=== PATIENT | female | born 1940 | race Caucasian/White ===

== ENCOUNTER 2016-09-12 21:44 | Inpatient (IN) | payer MEDICARE ==
[~2016-09-12] VITALS: Ht 165.1 cm; Wt 76.8 kg
[~2016-09-12 21:44] MED LIST: ASPIRIN 81MG TA81 MG PO; BENADRYL 25MG C25 MG PO; CENTRUM SILVER1 TAB PO; CLINDAMYCIN150 MG PO; COUMADIN 5MG TAB5 MG PO; COUMADIN6 MG PO; COZAAR25 MG PO; ELIQUIS2.5 MG PO; FERROUS SULFAT325 M2 PO; GLUCOSAMINE PO; Glucosamine500 MG PO; INNOPRAN XL120 MG PO; LEVAQUIN250 MG PO; LEVOTHYROXINE0.1 MG PO; LORATADINE 10MG10 M1 PO; LORTAB 5/3251 TAB PO; LOSARTAN POTASS25 MG PO; METOLAZONE 2.52.5 MG PO; NEURONTIN 300M300 MG PO; PANTOPRAZOLE SO40 MG PO; PERCOCET 5/3251 EACH PO; PERI-COLACE 501 TAB PO; POTASSIUM CHLO10 ME3 PO; POTASSIUM CHLO20 ME2 PO; PROPRANOLOL HC120 MG PO; ROBITUSSIN DM S10 ML NG; SPIRONOLACTONE25 MG NG; TEMAZEPAM15 M1 PO; TYLENOL ES500 M1 PO; VITAMIN D31000 I1 PO; VITAMIN D31000 IU PO; WARFARIN SODIUM4 MG PO; ZANTAC 150150 MG PO; ZOFRAN4 MG PO; [UNRECOGNIZED DRUG - OTHER] PO
[2016-09-12 21:58] VITALS: BP 131/88
--- OUTSIDE RECORDS SUMMARY | 2016-09-12 22:05 | External Medical Summary Rpt ---
Demographics Preferred Language Hungarian Marital Status Unknown Jainism Affiliation Unknown Race Unknown Ethnic Group Unknown Author Author , LOVE ALEMAN Address Unknown Phone Immunization Unable to retrieve immunization data due to connection failure with Immunization Registry. Please try again later.
--- OUTSIDE RECORDS SUMMARY | 2016-09-12 22:05 | External Medical Summary Rpt ---
Demographics Preferred Language Persian Marital Status Unknown Pentecostalism Affiliation Unknown Race Unknown Ethnic Group Unknown Author Author , LOVE ALEMAN Address Unknown Phone Immunization Unable to retrieve immunization data due to connection failure with Immunization Registry. Please try again later.
--- OUTSIDE RECORDS SUMMARY | 2016-09-12 22:05 | External Medical Summary Rpt ---
Author Author , LOVE ALEMAN Address Unknown Phone [email or web address] Name Relationship Address Phone CLAIRE, Next Of Kin [address] [phone] [place] [address] Purpose Continuity of Care Document - 11-19-2012 through 2016 Allergies, Adverse Reactions, Alerts Type Drug Allergy Adverse Reaction to Substance Substance Reaction Severity PCN (penicillin) Unknown Unknown Penicillin Unknown Unknown Penicillin G Unknown Unknown Vital Signs 11-19-2012 12:45 Name Value Interpretat Reference Comment ion Range BP 70 mm[Hg] Diastolic BP Systolic 132 mm[Hg] Heart 75 /min Rate/Pulse O2% 98 % Respiratory 16 /min Rate Encounters Encounter Start End Date Code Location Performer Type Date Emergency BESSIE Medel MD (ER) 3 12:44 3 12:47 [facility].
--- OUTSIDE RECORDS SUMMARY | 2016-09-12 22:05 | External Medical Summary Rpt ---
Author Author [employer] Organization [employer] Address Unknown Phone Unavailable Purpose Continuity of Care Document - through 2016
--- OUTSIDE RECORDS SUMMARY | 2016-09-12 22:05 | External Medical Summary Rpt ---
Author Author , LOVE ALEMAN Address Unknown Phone [email or web address] Support Name Relationship Address Phone CLAIRE, Next Of Kin [address] [phone] [place] [address] Purpose Continuity of Care Document - 11-19-2012 [...] Medel MD (ER) 3 12:44 3 12:47 [facility].
--- NOTE | 2016-09-12 22:20 | Emergency Room Report ---
History of Present Illness Time Seen by [id number] Presenting Problem in Triage Pt arrived:Walked Presenting Problem:RECENT HERNIA REPAIR SURGERY WITH SUBSEQUENT TREATMENT WITH WOUND VAC FOR MRSA TODAY HAD SUDDEN RIGIDITY AND PAIN ABOVE THE WOUND AFTER EATING. HAS NAUSEA NO VOMITING, 2 NORMAL BM'S TODAY. 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 N Clinical Suspician of Infection? Y Mental Status: 1 - Regular (Normal Baseline) Sepsis Risk:Low Sepsis Risk Have you (or family members/close friends) recently traveled outside the [place]? N If Yes, where/when: Have you had exposure to infectious disease within the past month? N TB? Other? Specify: Comment The patient complains of supraumbilical midline abdominal pain with nausea. Symptoms began this morning with what she thought was heartburn, but now she feels it is related to previous hernia surgery that she had in January. She had an incarcerated incisional hernia which was repaired. Surgery was done by Dr. Hooks. She says that this afternoon she feels a hard knot in the supraumbilical area that had not been present after her surgery. No vomiting. 2 bowel movements today without diarrhea. No fever. ALLERGIES Coded Allergies: Penicillins (02/03/16) penicillin G (02/03/16) Home Medications Reported Medications Spironolactone (Spironolactone) 50 MG NG BID PROPRANOLOL HCL (Innopran XL) 120 MG PO DAILY Metolazone (Metolazone 2.5MG) 2.5 MG PO DAILY Gabapentin (Neurontin 300MG) 300 MG PO TID Ferrous Sulfate (Ferrous Sulfate 325MG) 325 MG PO DAILY ASPIRIN (Aspirin) 81 MG PO DAILY CHOLECALCIFEROL (VITAMIN D3) (Vitamin D3) 1,000 IUNITS PO BID MULTIVIT,THER IRON,CA,FA & MIN (Sm Therapeutic M Tablet) 1 TAB PO DAILY Nutriceutical (Glucosamine & Chondroitin Plus) 1 TAB PO BID Pantoprazole Sodium (Pantoprazole 40MG) 40 MG PO QHS Diphenhydramine Hcl (Benadryl 25MG CAP) 25 MG PO QHS Losartan Potassium (Losartan 25MG) 25 MG PO DAILY Acetaminophen (Tylenol Extra-Strength) 500 MG PO Q6HP PRN PAIN Apixaban (Eliquis) 2.5 MG PO BID LEVOTHYROXINE SOD (Synthroid) 0.1 MG PO DAILY ONDANSETRON HCL (Zofran 4MG Tab) 4 MG PO Q6HP PRN NAUSEA AND VOMITING POTASSIUM CHL (Potassium Chloride) 20 MEQ PO BID SENNOSIDES/DOCUSATE SODIUM (Geetha-Colace Tablet) 1 TAB PO BID History Medical History General CAD? No Angina: No SC: No Hypertension? Yes Hyperlipidemia? No CHF? Yes DVT? No PE? No COPD? No Asthma? No Anemia? No GERD? No Gastric ulcers? No GI Bleed? No Hernia? Yes Thyroid Problems? Yes Hypothyroidism? No CVA? No Seizures? No Diabetes? No Renal Insuffiency? No End Stage Renal Disease? No UTI? No Stones? No BPH? No GB Disease: No Nephritic Syndrome? No Asplenia? No Hepatitis? No Sickle Cell Disease? No Arthritis? Yes Migraines? No Cataracts? No Glaucoma? No MRSA? Yes HIV? No TB? No Anxiety? No Depression? 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 No Immunization Hx DT/Tetanus 1-4 Years Ago Flu 2015-FSN Pneumonia Received In Past Surgical Hx Previous Surgery?Y HYSTERECTOMY W. APPY T&A SKIN CA REMOVED ARM/LEG THYROIDECTOMY COLON SURGERY RIGHT HIP SURGERY Family History Family Hx Diabetes No CAD Yes Hypertension Yes Hyperlipidemia Yes Cancer Yes TB No Social History Smoking Hx Smoker: Never Smoker Tobacco: No Packs/day N/A Alcohol Alcohol: No Review of Systems All Other Systems Reviewed and Negative Constitutional denies fever Gastrointestinal abdominal pain, denies constipation, denies diarrhea, nausea, denies vomiting Physical Exam Vital Signs Vital Signs Date Time Temp Pulse Resp B/P Pulse O2 O2 Flow FiO2 Ox Delivery Rate 09/13 0057 97.8 89 16 127/79 93 09/13 0039 97.8 89 16 127/79 93 09/13 0006 89 16 134/72 93 09/12 2316 89 16 138/73 93 09/12 2236 85 16 139/85 97 09/12 2158 97.8 87 14 131/88 97 General Appearance normal appearance, WD/WN Eye Exam - bilateral eye normal exam, bilateral eye PERRL, bilateral eye EOMI Ear, Nose, Throat hearing grossly normal, normal ENT inspection Neck normal inspection, non-tender, supple, full range of motion Respiratory Status Yes: trachea midline, chest symmetrical, non tender chest. No: respiratory distress. Lung Sounds bilateral: normal breath sounds, lungs clear. Cardiovascular normal exam, regular rate/rhythm, no peripheral edema, no gallop, no JVD, no murmur, no rub, normal peripheral pulses Peripheral Pulses Pulses normal Yes Gastrointestinal soft, no organomegaly, hernia, supraumbilical midline incisional hernia palpable. Minimally tender. I was able to reduce it completely without difficulty., hyperactive bowel sounds Extremities non-tender, normal range of motion, normal inspection Neurologic alert, ophthalmic pathologist II-XII nml as tested, normal exam, oriented x 3 Mental status normal mood/affect Skin intact, normal color, warm/dry Medical Decision Making LABS/Meds/Orders Pt receiving controlled substance in ED? No Results/Orders Laboratory Tests 09/12/16 2223: Urine Color YELLOW, Urine Appearance SL CLOUDY, Urine pH 6.5, Ur Specific [place] 1.025, Urine Protein NEGATIVE, Urine Ketones 1+ H, Urine Blood NEGATIVE , Urine Nitrate NEGATIVE, Urine Bilirubin NEGATIVE, Urine Urobilinogen 0.2, Ur Leukocyte Esterase 1+ H, Urine WBC 20-50, Ur Squamous Epith Cells 10-20, Amorphous Sediment 1+, Urine Bacteria 1+, Urine Mucus 1+, Urine Glucose NEGATIVE 09/12/16 2210: Sodium 139, Potassium 3.6, Chloride 100, Carbon Dioxide 30, BUN 23 H, Creatinine 0.6, Estimated Creat Clear 89, Estimated GFR (MDRD) 97, Glucose 109 H, Calcium 10.2 H, Total Bilirubin 0.5, AST 22, ALT 20, Alkaline Phosphatase 81 , Total Protein 8.0, Albumin 4.1, Globulin 3.9 H, Albumin/Globulin Ratio 1.1, Amylase 63, Lipase 204, WBC 14.1 H, RBC 4.94, Hgb 15.1, Hct 46.1, MCV 93.3, RDW 12.3, Plt Count 336, MPV 7.0 L, Gran % 84.9 H, Gran # 12.0 H, Lymphocytes % 10.6, Monocytes % 3.3, Eosinophils % 0.8, Basophils % 0.3, Lymphocytes # 1.5, Monocytes # 0.5, Eosinophils # 0.1, Basophils # 0.0, PUBS MCHC 32.7, MCH 30.6 Current Medication Orders Sig/Tawana Start time Last Medication Dose Route Stop Time Status Admin Enoxaparin Sodium 40 MG DAILY 09/13 09 UNV SC Levofloxacin/Dextrose 100 ML DAILY 09/13 09 UNVr IV Nicotine 21 MG DAILYP PRN 09/13 0015 UNV TD Ondansetron HCl 4 MG Q6HP PRN 09/13 0015 UNV IV Sodium Chloride 1,000 ML .Q8H 09/13 0015 UNV 09/13 IV 0030 Sodium Chloride 10 ML PRN PRN 09/13 0015 UNV IV Ondansetron HCl 4 MG ONCE ONE 09/12 2245 DC 09/12 IV 09/12 224 2233 Ondansetron HCl 4 MG ONCE ONE 09/12 2230 CAN IV 09/12 2231 Ondansetron HCl 4 MG ONCE ONE 09/12 2230 CAN IV 09/12 2231 Sodium Chloride 10 ML PRN PRN 09/12 2230 AC 09/12 IV 09/13 2216 2224 Ondansetron HCl 0 .STK-MED ONE 09/12 222 DC .ROUTE Orders Procedure Date/time Status DIET-NOTHING BY MOUTH 09/13 B Active ADMIT PATIENT 09/13 UNK Active VITAL SIGNS 09/13 UNK Active IV SALINE LOCK 09/13 UNK Active RECORD I & O 09/13 UNK Active CODE STATUS 09/13 UNK Active PATIENT ACTIVITY ORDER 09/13 UNK Active Decision to admit 09/[address] ABD & PELVIS W/O CONTRAST 09/12 2224 Active CULTURE, URINE 09/[address] ABD/PELVIS REQ 09/12 2216 Active IV SALINE LOCK 09/12 2216 Active URINALYSIS/COMPLETE 09/12 2216 Complete LIPASE 09/12 2216 Complete CBC WITH AUTO DIFF 09/12 2216 Complete CHEM 12 PROFILE 09/12 2216 Complete AMYLASE 09/12 2216 Complete XRAY/CT/US XRAY/CT/US CT abdomen, pelvis Comment CT scan interpreted by [facility] radiologist. Faxed report received and reviewed: Evidence of partial or early small bowel obstruction with transition point at periumbilical anterior abdomen, suspect enteroperitoneal adhesions. Reduction of supraumbilical hernia, focal diastases continuing the wall of small bowel loop. Small nonspecific postoperative fluid collection 3.9 x 0.9 cm. Large hiatal hernia, no obstruction to suggest volvulus. Progress - 11:58 PM: I have discussed the case with Dr. Hooks who agrees to admit the patient to the hospital. We discussed the patient's clinical information, including history, exam, laboratory and radiology results and ED course. Per hospital procedure, I will write temporary bridge inpatient orders on the patient. Specific orders requested by the admitting physician: Nothing by mouth, IV fluids Departure Departure Disposition Still a Patient Clinical Impression Primary Impression: Partial small bowel obstruction Secondary Impressions: UTI (urinary tract infection) Qualifiers: Urinary tract infection type: site unspecified Hematuria presence: without hematuria Qualified Code: N39.0 - Urinary tract infection, site not specified Condition STABLE Referrals Levi HASSAN,Irvin Malloy (Family) ED Critical Care Critical Care No at [id number]
[2016-09-12 22:21] LABS: LYMPH # 1.5 K/mm3 (0.7-4.5); LYMPH % 10.6 % (10-50.0)
[2016-09-12 22:26] LABS: HEMOGLOBIN 15.1 g/dL (12.2-16.2)
[2016-09-12 22:33] LABS: URINE BILIRUBIN - DIPSTICK NEGATIVE (NEG); URINE BLOOD NEGATIVE (NEG)
--- OUTSIDE RECORDS SUMMARY | 2016-09-13 00:04 | External Medical Summary Rpt ---
Author Author , LOVE ALEMAN Address Unknown Phone [email or web address] Support Name Relationship Address Phone CLAIRE, Next Of Kin [address] [phone] [place] [address] Purpose Continuity of Care Document - 11-19-2012 [...] O2% 98 % Respiratory 16 /min Rate Results Labs Lab Lab Date Result Refere Interp Status Commen Order Detail nces retati t Range on Urinalysis dipstick W Reflex Microscopic panel in Urine (09-12-2016 22:23) Amorpho 1+ NONE complet us 017 ed sedimen 22:23 t [Presen ce] in Urine sedimen t by Light microsc opy Bacteri 1+ O complet a 017 ed [Presen 22:23 ce] in Urine sedimen t by Light microsc opy Epithel 10-20 0#/hp complet ial 017 f - ed cells.s 22:23 5#/hp quamous f [Presen ce] in Urine sedimen t by Microsc opy high power field Leukocy 20-50 O complet [place] 017 wbc/hpf ed [#/volu 22:23 me] in Urine Urinalysis dipstick W Reflex Microscopic panel in Urine (09-12-2016 22:23) Appeara SL CLEAR complet nce of 017 CLOUDY ed Urine 22:23 Bilirub NEGATIV NEG complet in 017 E ed [Presen 22:23 ce] in Urine by Test strip Erythro NEGATIV NEG complet cytes 017 E ed [Presen 22:23 ce] in Urine Color YELLOW YELLOW complet of 017 ed Urine 22:23 Ketones 1+ NEG Abnorma complet 017 l ed [Presen 22:23 ce] in Urine by Automat ed test strip Mucus 1+ NEG Abnorma complet [Presen 017 l ed ce] in 22:23 Urine sedimen t by Light microsc opy Nitrite NEGATIV NEG complet 017 E ed [Presen 22:23 ce] in Urine by Test strip Urobili 0.2 NEG complet nogen 017 ed [Presen 22:23 ce] in Urine by Test strip Encounters Encounter Start End Date Code Location Performer Type Date Emergency BESSIE Medel MD (ER) 3 12:44 3 12:47 [facility].
--- OUTSIDE RECORDS SUMMARY | 2016-09-13 00:04 | External Medical Summary Rpt ---
Author Author , LOVE ALEMAN Address Unknown Phone [email or web address] Support Name Relationship Address Phone CLAIRE, Next Of Kin [address] [phone] [place] [address] Purpose Continuity of Care Document - 11-19-2012 [...] Medel MD (ER) 3 12:44 3 12:47 [facility].
--- OUTSIDE RECORDS SUMMARY | 2016-09-13 00:04 | External Medical Summary Rpt ---
Demographics Preferred Language Wolof Marital Status Unknown Muslim Affiliation Unknown Race Unknown Ethnic Group Unknown Author Author , LOVE ALEMAN Address Unknown Phone Immunization Unable to retrieve immunization data due to connection failure with Immunization Registry. Please try again later.
--- OUTSIDE RECORDS SUMMARY | 2016-09-13 00:04 | External Medical Summary Rpt ---
Author Author LOVE [employer], [employer] Organization [employer] Address Unknown Phone Unavailable Results Urinalysis dipstick W Reflex Microscopic panel in Urine Observa Value Referen Units Interpr Notes Date tion ce etation Range Appeara SL CLEAR No No No Sep 12 nce of CLOUDY informa informa informa 2017 Urine tion in tion in tion in 10:23 source source source PM data data data Amorpho 1+ NONE No No No Sep 12 us informa informa informa 2017 sedimen tion in tion in tion in 10:23 t source source source PM [Presen data data data ce] in Urine sedimen t by Light microsc opy Bacteri 1+ O No No No Sep 12 a informa informa informa 2016 [Presen tion in tion in tion in 10:23 ce] in source source source PM Urine data data data sedimen t by Light microsc opy Bilirub NEGATIV NEG No No No Sep 12 in E informa informa informa 2016 [Presen tion in tion in tion in 10:23 ce] in source source source PM Urine data data data by Test strip Erythro NEGATIV NEG No No No Sep 12 cytes E informa informa informa 2016 [Presen tion in tion in tion in 10:23 ce] in source source source PM Urine data data data Color YELLOW YELLOW No No No Sep 12 of informa informa informa 2017 Urine tion in tion in tion in 10:23 source source source PM data data data Glucose NEG No No No Sep 12 [Mass/vol informati informati informati 2017 ume] in on in on in on in 10:23 PM Urine by source source source Test data data data strip Ketones 1+ NEG mg/dL Abnorma No Sep 12 l informa 2016 [Presen tion in 10:23 ce] in source PM Urine data by Automat ed test strip Mucus 1+ NEG No Abnorma No Sep 12 [Presen informa l informa 2016 ce] in tion in tion in 10:23 Urine source source PM sedimen data data t by Light microsc opy Mucus 1+ OCC No No No Sep 12 [Presen informa informa informa 2016 ce] in tion in tion in tion in 10:23 Urine source source source PM sedimen data data data t by Light microsc opy Nitrite NEGATIV NEG No No No Sep 12 E informa informa informa 2016 [Presen tion in tion in tion in 10:23 ce] in source source source PM Urine data data data by Test strip pH of 5.0 - 8.5 No Normal No Sep 12 Urine informati informati 2017 on in on in 10:23 PM source source data data Protein NEG mg/dL No No Sep 12 [Mass/vol informati informati 2016 ume] in on in on in 10:23 PM Urine by source source Automated data data test strip Specific 1.005 - No Normal No Sep 12 gravity 1.030 informati informati 2016 of Urine on in on in 10:23 PM source source data data Epithel 10-20 0 - 5 #/hpf No No Sep 12 ial informa informa 2017 cells.s tion in tion in 10:23 quamous source source PM data data [Presen ce] in Urine sedimen t by Microsc opy high power field Urobili 0.2 NEG E.U./dL No No Sep 12 nogen informa informa 2016 [Presen tion in tion in 10:23 ce] in source source PM Urine data data by Test strip Leukocy [20 O wbc/hpf No No Sep 12 [place] wbc/hpf informa informa 2016 [#/volu ; 50 tion in tion in 10:23 me] in wbc/hpf source source PM Urine ] data data Urinalysis dipstick W Reflex Microscopic panel in Urine Observa Value Referen Units Interpr Notes Date tion ce etation Range Appeara SL CLEAR No No No Sep 12 nce of CLOUDY informa informa informa 2017 Urine tion in tion in tion in 10:23 source source source PM data data data Bilirub NEGATIV NEG No No No Sep 12 in E informa informa informa 2016 [Presen tion in tion in tion in 10:23 ce] in source source source PM Urine data data data by Test strip Erythro NEGATIV NEG No No No Sep 12 cytes E informa informa informa 2017 [Presen tion in tion in tion in 10:23 ce] in source source source PM Urine data data data Color YELLOW YELLOW No No No Sep 12 of informa informa informa 2017 Urine tion in tion in tion in 10:23 source source source PM data data data Glucose NEG No No No Sep 12 [Mass/vol informati informati informati 2017 ume] in on in on in on in 10:23 PM Urine by source source source Test data data data strip Ketones 1+ NEG mg/dL Abnorma No Sep 12 l informa 2016 [Presen tion in 10:23 ce] in source PM Urine data by Automat ed test strip Mucus 1+ NEG No Abnorma No Sep 12 [Pres informa l informa 2016 ce] in tion in tion in 10:23 Urine source source PM sedimen data data t by Light microsc opy Nitrite NEGATIV NEG No No No Sep 12 E informa informa informa 2016 [Presen tion in tion in tion in 10:23 ce] in source source source PM Urine data data data by Test strip pH of 5.0 - 8.5 No Normal No Sep 12 Urine informati informati 2017 on in on in 10:23 PM source source data data Protein NEG mg/dL No No Sep 12 [Mass/vol informati informati 2017 ume] in on in on in 10:23 PM Urine by source source Automated data data test strip Specific 1.005 - No Normal No Sep 12 gravity 1.030 informati informati 2016 of Urine on in on in 10:23 PM source source data data Urobili 0.2 NEG E.U./dL No No Sep 12 nogen informa informa 2016 [Presen tion in tion in 10:23 ce] in source source PM Urine data data by Test strip Amylase [Enzymatic activity/volume] in Serum or Plasma Observa Value Referen Units Interpr Notes Date tion ce etation Range Amylase 25 - 115 U/L Normal No Sep 12 [Enzymati informati 2017 c on in 10:10 PM activity/ source volume] data in Serum or Plasma Comprehensive metabolic 2000 panel in Serum or Plasma Observa Value Referen Units Interpr Notes Date tion ce etation Range Albumin/G 1.1 - 1.8 No Normal No Sep 12 lobulin informati informati 2017 [Mass on in on in 10:10 PM ratio] in source source Serum or data data Plasma Albumin 3.4 - 5.0 gm/dL Normal No Sep 12 [Mass/vol informati 2017 ume] in on in 10:10 PM Serum or source Plasma data Alkaline 46 - 116 U/L Normal No Sep 12 phosphata informati 2017 se on in 10:10 PM [Enzymati source c data activity/ volume] in Serum or Plasma Bilirubin 0.2 - 1.0 mg/dL Normal No Sep 12 .total informati 2016 [Mass/vol on in 10:10 PM ume] in source Serum or data Plasma Urea 7 - 18 mg/dL High No Sep 12 nitrogen informati 2017 [Mass/vol on in 10:10 PM ume] in source Serum or data Plasma Calcium 8.5 - mg/dL High No Sep 12 [Mass/vol 10.1 informati 2016 ume] in on in 10:10 PM Serum or source Plasma data Chloride 98 - 107 mmoL/L Normal No Sep 12 [Moles/vo informati 2017 lume] in on in 10:10 PM Serum or source Plasma data Carbon 21.0 - mmoL/L Normal No Sep 12 dioxide, 32.0 informati 2017 total on in 10:10 PM [Moles/vo source lume] in data Serum or Plasma Creatinin 0.55 - mg/dL Normal No Sep 12 e 1.02 informati 2016 [Mass/vol on in 10:10 PM ume] in source Serum or data Plasma Creatinin 50 - 200 ML/MIN Normal No Sep 12 e renal informati 2017 clearance on in 10:10 PM source predicted data by Cockcroft -Gault formula Estimated 59- ML/MIN No REFERENCE Sep 12 informati RANGE: 2017 glomerula on in >60 10:10 PM r source ML/MIN/1. filtratio data 73 SQUARE n rate METERSIf (GF this patient is -A merican, then multiply theresult by 1.210. Globulin 1.3 - 3.2 gm/dL High No Sep 12 [Mass/vol informati 2017 ume] in on in 10:10 PM Serum source data Glucose 74 - 106 mg/dL High No Sep 12 [Mass/vol informati 2017 ume] in on in 10:10 PM Serum or source Plasma data Potassium 3.5 - 5.1 mmoL/L Normal No Sep 122016 [Moles/vo on in 10:10 PM lume] in source Serum or data Plasma Sodium 136 - 145 mmoL/L Normal No Sep 12 [Moles/vo informati 2016 lume] in on in 10:10 PM Serum or source Plasma data Aspartate 15 - 37 U/L Normal No Sep 122016 aminotran on in 10:10 PM sferase source [Enzymati data c activity/ volume] in Serum or Plasma Alanine 12 - 78 U/L Normal No Sep 12 aminotran 2016 sferase on in 10:10 PM [Enzymati source c data activity/ volume] in Serum or Plasma Protein 6.4 - 8.2 gm/dL No No Sep 12 [Mass/vol informati informati 2016 ume] in on in on in 10:10 PM Serum or source source Plasma data data Lipase [Enzymatic activity/volume] in Serum or Plasma Observa Value Referen Units Interpr Notes Date tion ce etation Range Lipase 73 - 393 U/L Normal No Sep 12 [Enzymati informati 2016 c on in 10:10 PM activity/ source volume] data in Serum or Plasma CBC W Auto Differential panel in Blood Observa Value Referen Units Interpr Notes Date tion ce etation Range Basophils 0 - 0.2 K/MM3 Normal No Sep 122016 [#/volume on in 10:10 PM ] in source Blood by data Automated count Basophils 0.1 - 2.0 % Normal No Sep 122016 leukocyte on in 10:10 PM s in source Blood by data Automated count Eosinophi 0.0 - 0.4 K/mm3 Normal No Sep 12 ls 2016 [#/volume on in 10:10 PM ] in source Blood by data Automated count Eosinophi 0.1 - % Normal No Sep 12 ls/100 12.0 2016 leukocyte on in 10:10 PM s in source Blood by data Automated count Granulocy 1.8 - 7.8 K/mm3 High No Sep 12 [place] 2016 [#/volume on in 10:10 PM ] in source Blood by data Automated count Granulocy 37.0 - % High No Sep 12 [place]/100 80.0 2016 leukocyte on in 10:10 PM s in source Blood by data Automated count Hematocri 37.0 - % Normal No Sep 12 t [Volume 47.0 2016 on in 10:10 PM Fraction] source of Blood data Hemoglobi 12.2 - g/dL No No Sep 12 n 16.2 informati informati 2016 [Mass/vol on in on in 10:10 PM ume] in source source Blood data data Lymphocyt 0.7 - 4.5 K/mm3 Normal No Sep 12 es inform2016 [#/volume on in 10:10 PM ] in source Unspecifi data ed specimen by Automated count Lymphocyt 10 - 50.0 % Normal No Sep 12 es inform2016 [#/volume on in 10:10 PM ] in source Unspecifi data ed specimen by Automated count Erythrocy 27 - 31.2 pg Normal No Sep 12 te mean 2016 corpuscul on in 10:10 PM ar source hemoglobi data n [Entitic mass] Erythrocy 31.8 - g/dl Normal No Sep 12 te mean 35.4 2016 corpuscul on in 10:10 PM ar source hemoglobi data n concentra tion [Mass/vol ume] by Automated count Erythrocy 82.2 - fl Normal No Sep 12 te mean 97.8 inform2016 corpuscul on in 10:10 PM ar volume source [Entitic data volume] by Automated count Monocytes 0.1 - 1.0 K/mm3 Normal No Sep 122016 [#/volume on in 10:10 PM ] in source Blood by data Automated count Monocytes 1.7 - 9.3 % Normal No Sep 12 /100 2016 leukocyte on in 10:10 PM s in source Blood by data Automated count Platelet 7.4 - fl Low No Sep 12 mean 10.4 2016 volume on in 10:10 PM [Entitic source volume] data in Blood by Automated count Platelets 142 - 424 K/mm3 Normal No Sep 122016 [#/volume on in 10:10 PM ] in source Blood data Erythrocy 4.2 - 5.4 M/mm3 Normal No Sep 12 [place] informati 2016 [#/volume on in 10:10 PM ] in source Amniotic data fluid Erythrocy 11.5 - % Normal No Sep 12 te 17.5 2016 distribut on in 10:10 PM ion width source [Entitic data volume] by Automated count Leukocyte 4.8 - K/MM3 High No Sep 12 s 10.8 informati 2017 [#/volume on in 10:10 PM ] in source Blood data
--- OUTSIDE RECORDS SUMMARY | 2016-09-13 00:04 | External Medical Summary Rpt ---
Demographics Preferred Language Bel[place]ian Marital Status Unknown Protestant Affiliation Unknown Race Unknown Ethnic Group Unknown Author Author , LOVE ALEMAN Address Unknown Phone Immunization Unable to retrieve immunization data due to connection failure with Immunization Registry. Please try again later.
[2016-09-13 01:27] VITALS: BP 135/88
[2016-09-13 01:31] VITALS: BP 135/88
[2016-09-13 04:32] VITALS: BP 121/64
[2016-09-13 07:22] VITALS: BP 124/78
--- NOTE | 2016-09-13 09:40 | PHARMACY CLINIC NOTE ---
Patient Demographics Patient Demographics Admission date: 09/13/16 Date: 09/13/16 Time: 0939 Allergies Coded Allergies: Penicillins (02/03/16) penicillin G (02/03/16) HEIGHT- FT: 5 IN: 5.00 K.800 VTE General Information Labs: Laboratory Tests 09/12 2209 Hematology Hgb (12.2 - 16.2 g/dL) 15.1 Hct (37.0 - 47.0 %) 46.1 Plt Count (142 - 424 K/mm3) 336 Disclaimer The following section includes nursing documentation that has been pulled in for pharmacy review. Patient's VTE score: 2 Patient's VTE Risk: VERY LOW RISK Clinical trial participant? No VTE prophylaxis [id number] VTE prophylaxis ordered? Yes Type of prophylaxis/treatment: Lovenox at 0939
--- NOTE | 2016-09-13 10:02 | Discharge Summary Standard ---
See Addendum Demographics: Admit date: 09/13/16 Chief complaint: Abdominal pain and nausea PRIMARY DIAGNOSIS: SMALL BOWEL OBSTRUCTION Allergies: Coded Allergies: Penicillins (02/03/16) penicillin G (02/03/16) History of present illness: History of present illness: This is a 76-year-old female who presented overnight to the emergency department with increasing abdominal pain and nausea. Location is midline above the umbilicus. Symptoms began yesterday morning with what she thought was heartburn. During the day she developed increasing pain and stated that she "thought the hernia was back". Over the past few weeks she has noticed a "knot there". She underwent open repair of an incarcerated supraumbilical hernia in January of last year. Mesh was not placed at that time secondary to a combination of the patient's wishes and her use of anticoagulants (attempts to minimize dissection) . No vomiting. No fevers. She continues to have flatus and bowel movements. She had reduction of her hernia in the emergency department. A follow-up CT scan revealed possible partial small bowel obstruction. She is continued to progress well overnight and "feels fine now". Again, she continues to pass flatus and states that she is "hungry". Past medical history: Family HX Diabetes No CAD Yes Hypertension Yes Hyperlipidemia Yes Cancer Yes TB No Immunization HX DT/Tetanus 5-10 Years Ago Flu 2015-FSN Pneumonia Received In Past TB Test in last year Yes Result Negative General CAD? No Angina: No UT: No Hypertension? Yes Hyperlipidemia? No CHF? Yes DVT? No PE? No COPD? No Asthma? No Anemia? No GERD? No Gastric ulcers? No GI Bleed? No Hernia? Yes Thyroid Problems? Yes Hypothyroidism? No CVA? No Seizures? No Diabetes? No Renal Insuffiency? No UTI? No Stones? No BPH? No GB Disease: No Nephritic Syndrome? No Asplenia? No Hepatitis? No Sickle Cell Disease? No Arthritis? Yes Migraines? No Cataracts? No Glaucoma? No MRSA? Yes HIV? No TB? No Anxiety? No Depression? 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 No Past Surgical HX Previous Surgery?Y HYSTERECTOMY W. APPY T&A SKIN CA REMOVED ARM/LEG THYROIDECTOMY COLON SURGERY RIGHT HIP SURGERY Current home meds: Reported Medications Spironolactone (Spironolactone) 50 MG NG BID PROPRANOLOL HCL (Innopran XL) 120 MG PO DAILY Metolazone (Metolazone 2.5MG) 2.5 MG PO DAILY Gabapentin (Neurontin 300MG) 300 MG PO TID Ferrous Sulfate (Ferrous Sulfate 325MG) 325 MG PO DAILY ASPIRIN (Aspirin) 81 MG PO DAILY CHOLECALCIFEROL (VITAMIN D3) (Vitamin D3) 1,000 IUNITS PO BID MULTIVIT,THER IRON,CA,FA & MIN (Sm Therapeutic M Tablet) 1 TAB PO DAILY Nutriceutical (Glucosamine & Chondroitin Plus) 1 TAB PO BID Pantoprazole Sodium (Pantoprazole 40MG) 40 MG PO QHS Diphenhydramine Hcl (Benadryl 25MG CAP) 25 MG PO QHS Losartan Potassium (Losartan 25MG) 25 MG PO DAILY Acetaminophen (Tylenol Extra-Strength) 500 MG PO Q6HP PRN PAIN Apixaban (Eliquis) 2.5 MG PO BID LEVOTHYROXINE SOD (Synthroid) 0.1 MG PO DAILY ONDANSETRON HCL (Zofran 4MG Tab) 4 MG PO Q6HP PRN NAUSEA AND VOMITING POTASSIUM CHL (Potassium Chloride) 20 MEQ PO BID SENNOSIDES/DOCUSATE SODIUM (Geetha-Colace Tablet) 1 TAB PO BID Social Hx: Smoking HX Tobacco No Packs/day N/A Alcohol Alcohol: No Hx of Drug Use Drug Use? No Patient's support system is excellent Review of systems: Constitutional No: chills, fever. Respiratory No: shortness of breath, wheezing. Cardiovascular No chest pain Gastrointestinal/Abdominal abdominal pain, nausea Genitourinary No: frequency. Musculoskeletal joint pain. Neurological No: no symptoms reported. Psychiatric No: anxious. Exam: Lab data for last 24 hours: Laboratory Tests 09/12/16 2223: Urine Color YELLOW, Urine Appearance SL CLOUDY, Urine pH 6.5, Ur Specific [place] 1.025, Urine Protein NEGATIVE, Urine Ketones 1+ H, Urine Blood NEGATIVE , Urine Nitrate NEGATIVE, Urine Bilirubin NEGATIVE, Urine Urobilinogen 0.2, Ur Leukocyte Esterase 1+ H, Urine WBC 20-50, Ur Squamous Epith Cells 10-20, Amorphous Sediment 1+, Urine Bacteria 1+, Urine Mucus 1+, Urine Glucose NEGATIVE 09/12/162209: Sodium 139, Potassium 3.6, Chloride 100, Carbon Dioxide 30, BUN 23 H, Creatinine 0.6, Estimated Creat Clear 89, Estimated GFR (MDRD) 97, Glucose 109 H, Calcium 10.2 H, Total Bilirubin 0.5, AST 22, ALT 20, Alkaline Phosphatase 81 , Total Protein 8.0, Albumin 4.1, Globulin 3.9 H, Albumin/Globulin Ratio 1.1, Amylase 63, Lipase 204, WBC 14.1 H, RBC 4.94, Hgb 15.1, Hct 46.1, MCV 93.3, RDW 12.3, Plt Count 336, MPV 7.0 L, Gran % 84.9 H, Gran # 12.0 H, Lymphocytes % 10.6, Monocytes % 3.3, Eosinophils % 0.8, Basophils % 0.3, Lymphocytes # 1.5, Monocytes # 0.5, Eosinophils # 0.1, Basophils # 0.0, PUBS MCHC 32.7, MCH 30.6 Microbiology 09/12 2222 URINE CC: Urine Culture - RECD Admission vital signs: 1ST Vital Signs Result Date Time Pulse Ox 97 09/12 2157 B/P 131/88 09/12 2157 Temp 97.8 09/12 2157 Pulse 87 09/12 2157 Resp 14 09/12 2157 O2 Delivery ROOM AIR 09/13 0127 Exam General appearance: alert, no acute distress Neck: non-tender Cardiovascular: regular rate & rhythm Respiratory: no respiratory distress ABD: soft, no tenderness, hernia ((2cm reducible supraumbilical)) Extremities: moves all Musculoskeletal: sensation intact Skin: no gross abnormalities Neuro: alert, normal mood/affect Hospital Course Hospital Course: The patient was admitted for overnight observation. She continued to progress well. Her hernia remain reducible. She was deemed appropriate for discharge on the morning of September 13. Medications Medications: Discharge meds are as noted. Follow up Follow up in office in: 2 DAYS with: ОЛЕГ MACHADO MD Comment: I have had a long discussion with the patient concerning the risks and benefits of repair of her recurrent hernia. The patient understands the risks and benefits and wishes to "think about it". She is stable for discharge with close follow-up. She will need to withhold was 2-3 days prior to intervention. Note: The patient does have a large complex hiatal hernia and a large portion of her stomach is within her chest. She is without symptoms with regard to this hernia and does not wish to pursue intervention. at 1001
[2016-09-13 10:11] VITALS: BP 124/78
--- NOTE | 2016-09-13 10:22 | RADIOLOGY REPORT PS360 ---
CT ABD PELVIS W/O CONTRAST COMPARISON: CT scan abdomen pelvis 01/30/2016 HISTORY: Abdominal pain suspect recurrence of umbilical hernia TECHNIQUE: Multiple axial scans obtained from the lower chest to the pelvic floor and were performed without IV or oral contrast. Sagittal and coronal reformats were evaluated as well. 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 There is prominent gaseous distention of the stomach but there is no obvious obstruction a similar appearance of the intrathoracic stomach was seen on the previous CT scan in January 2016. The liver and spleen pancreas and gallbladder appear grossly normal. The adrenal glands are normal. The kidneys are normal in size and there are tiny cortical cyst in each kidney but there is no obstructive uropathy of either kidney. There are mildly dilated fluid-filled loops of proximal small bowel with a transition zone in the midline at the site of a recurrent umbilical hernia with slight protrusion of the dilated loops of small bowel into the previous surgical repair site there is large amount stool in the cecum and ascending colon. I do not definitely identify the appendix but there are no inflammatory changes in the right lower quadrant. There are postsurgical changes of the lower sigmoid colon. There is been previous hysterectomy. The urinary bladder is partially decompressed. 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 There is a total hip prosthesis right side. 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 Apparent recurrent umbilical hernia but with only a small protrusion of dilated small bowel into the postsurgical site,whereas the previous study in January 2016 showed a dilated loop of bowel through the umbilical hernia. There appears be at least a partial mechanical small bowel obstruction secondary to the recurrent umbilical hernia 3. Postsurgical changes lower sigmoid colon, I agree the [facility] report.
[2016-09-13] MEDS ORDERED: BACTRIM DS 8001 TA1 PO (10:37)
[2016-09-13 11:23] VITALS: BP 124/78
== END 2016-09-13 11:20 | disposition home or self-care (01) | DRG 394 ==
LOC: ER 21:44 → 2ND 09-13 → ER 09-13 → 2ND 09-13 00:04
PROVIDERS: Emergency Medicine
DX: K43.2 Incisional hernia without obstruction or gangrene (principal); N39.0 Urinary tract infection, site not specified; I10 Essential (primary) hypertension
CPT/HCPCS: J2405